=== PATIENT | female | born 1950 | race American Indian/Alaskan Native ===

== ENCOUNTER 2016-06-07 07:28 | Day surgery (SDC) | payer MEDICARE ==
[~2016-06-07 07:28] MED LIST: XYLOCAINE MPF 2% ONE
[2016-06-07] MEDS ORDERED: NACL 0.9% 1000 ML 1,000 ML IV SCH (09:00)
[2016-06-07] MEDS ORDERED: DIPRIVAN 10 MG/ML IV ONE ×2 (09:11)
--- NOTE | 2016-06-07 09:41 | Short Stay Summary ---
Short Stay Documentation Date of service: 06/07/16 Narrative H&P: The patient presents for routine screening colonoscopy. Last study was 10 years ago and was normal - History Past Medical History: No medical history Past Surgical History: No surgical history Social history: no significant social history, , lives with family, no smoking, no alcohol abuse, no prescription drug abuse - Allergies and Medications Current Medications: Allergies shellfish derived Allergy (Verified 06/28/14 09:13) Anaphylaxis tramadol Allergy (Verified 06/07/16 08:16) Nausea codeine Adverse Reaction (Verified 06/28/14 09:13) Nausea Sulfa (Sulfonamide Antibiotics) Adverse Reaction (Verified 06/28/14 09:13) Unknown Home Medications Medication Instructions Recorded Confirmed Last Taken Type No Known Home Medications [No 06/07/16 06/07/16 Unknown History Reported Home Medications] Active Medications Sodium Chloride (Nacl 0.9% 1000 Ml) 1,000 mls @ 50 mls/hr IV DIRECT KAILA Last Admin: 06/07/16 08:44 Dose: 50 mls/hr - Physical exam General appearance: no acute distress, well-nourished, obese Integumentary: no rash, no growths, no abnormal pigmentation HEENT: Atraumatic, PERRLA, EOMI, Mucous membr. moist/pink Lungs: Clear to auscultation, Normal air movement Breasts: deferred Heart: Regular rate, Normal S1, Normal S2, No murmurs Gastrointestinal: normoactive bowel sounds, no tenderness, no distended, no masses, no guarding, no organomegaly, obese Female Genitourinary: deferred Rectal Exam: normal exam-external/orifice, normal rectal tone, no mass Extremities: no ischemia, pulses intact, pulses symmetrical, No edema, normal temperature, normal color, Full ROM Neurological: Normal gait, Normal speech, Strength at 5/5 X4 ext, Normal tone, Sensation intact, Cranial nerves 3-12 NL - Brief post op/procedure progress note Date of procedure: 06/07/16 Findings: see dictation Estimated blood loss: none Pathology: none Condition: stable - Disposition Condition at discharge: Good Disposition: DISCHARGED TO HOME OR SELFCARE - Discharge Diagnoses (1) Colon cancer screening Status: Acute Short Stay Discharge Plan Activity: other (no driving for 24 hours) Weight Bearing Status: Full Weight Bearing Diet: regular Follow up with: ADEOLA PAULSON [Other] - 7 Days
--- NOTE | 2016-06-07 09:42 | Operative Report ---
Operative Report Operative Report: Date of procedure: 06/07/2016 Preprocedure diagnosis: Cancer screening, average risk. Last study was normal 10 years ago. Post procedure diagnosis: Normal study Procedure: Colonoscopy to the cecum Endoscopist: Dr. De León Anesthesia: Monitored anesthesia care per anesthesia department Estimated blood loss: 0 Medications: Monitored anesthesia care. See separate report by anesthesia for details. After careful discussion of the nature and purpose of the procedure as well as details of the technique risks benefits and alternatives the patient gave consent. Please see recent history and physical from the office. The patient was placed in the left lateral decubitus position and medicated per anesthesia. A rectal exam was performed sphincter tone was normal there were no masses palpable. The [employer] 570 scope was passed transanally and advanced under continuous direct vision without difficulty to the cecum. The colon was well prepared. The cecum was normal. The ascending colon was normal and on forward and retroflexed views. The transverse colon, descending colon, and sigmoid colon were normal. The rectum was normal on forward and retroflexed views. The procedure was well-tolerated overall and the patient was observed in recovery. Conclusions: Normal colonoscopy to the cecum. Plan: Repeat colonoscopy in 10 years. Signed electronically: Ha De León M.D.
[2016-06-07 10:01] VITALS: BP 122/62
--- NOTE | 2016-06-07 10:35 | Anesthesia Consultation ---
Anesthesia Consult and Med Hx Date of service: 06/07/16 - Airway Anesthetic Teeth Evaluation: Good ROM Head & Neck: Adequate Mental/Hyoid Distance: Adequate Mallampati Class: Class II Intubation Access Assessment: Probably Good - Pulmonary Exam CTA: Yes - Cardiac Exam Cardiac Exam: RRR - Pre-Operative Health Status ASA Pre-Surgery Classification: ASA2 Proposed Anesthetic Plan: MAC - Pulmonary Hx Smoking: No Hx Sleep Apnea: Yes
--- NOTE | 2016-06-07 10:35 | Anesthesia Day of Surgery ---
Anesthesia Day of Surgery - Day of Surgery Patient Examined: Yes Patient H&P Reviewed: Yes Patient is NPO: Yes
--- NOTE | 2016-06-07 10:36 | Post Anesthesia Evaluation ---
- Post Anesthesia Evaluation Patient Participated: Yes Airway Patent: Yes Stable Respiratory Function: Yes Nausea/Vomiting: No Temp > 96.8F: Yes Pain Manageable: Yes Adequeate Hydration: Yes Anesthesia Complications: No Block Receding Appropriately: Not Applicable Patient on Ventilator: No
== END 2016-06-07 07:29 | disposition home or self-care (01) ==
LOC: GIO 07:28
PROVIDERS: ATTEND Internal Medicine Gastroenterology
DX: Z12.11 Encounter for screening for malignant neoplasm of colon (principal); G47.33 Obstructive sleep apnea (adult) (pediatric); E66.9 Obesity, unspecified; Z68.36 Body mass index [BMI] 36.0-36.9, adult
CPT/HCPCS: G0121; J2704; J7030

== ENCOUNTER 2016-06-21 07:30 | Day surgery (SDC) | payer MEDICARE ==
[2016-06-21] MEDS ORDERED: NACL 0.9% 1000 ML 1,000 ML IV SCH (09:00)
--- NOTE | 2016-06-21 09:13 | Anesthesia Day of Surgery ---
Anesthesia Day of Surgery - Day of Surgery Patient Examined: Yes Patient H&P Reviewed: Yes Patient is NPO: Yes
--- NOTE | 2016-06-21 09:13 | Anesthesia Consultation ---
Anesthesia Consult and Med Hx Date of service: 06/21/16 - Airway Anesthetic Teeth Evaluation: Good ROM Head & Neck: Adequate Mental/Hyoid Distance: Adequate Mallampati Class: Class II Intubation Access Assessment: Probably Good - Pre-Operative Health Status ASA Pre-Surgery Classification: ASA2 Proposed Anesthetic Plan: MAC - Pulmonary Hx Smoking: No Hx Respiratory Symptoms: Yes (some allergies, cough with clear spitum) Hx Sleep Apnea: Yes - Gastrointestinal Hx Ulcer: No (some nausea) - Other Systems Hx Obesity: Yes (BMI 37.2)
[2016-06-21] MEDS ORDERED: DIPRIVAN 10 MG/ML IV ONE (09:18)
[2016-06-21] MEDS ORDERED: XYLOCAINE MPF 2% ONE (09:20)
--- NOTE | 2016-06-21 09:49 | Short Stay Summary ---
Short Stay Documentation Date of service: 06/21/16 Narrative H&P: The patient presents for upper endoscopy to evaluate recurrent nausea and vomiting. - History Past Medical History: arthritis Past Surgical History: No surgical history Social history: no significant social history, no smoking, no alcohol abuse, no prescription drug abuse - Allergies and Medications Current Medications: Allergies shellfish derived Allergy (Verified 06/21/16 08:19) Anaphylaxis tramadol Allergy (Verified 06/21/16 08:19) Nausea codeine Adverse Reaction (Verified 06/21/16 08:19) Nausea Sulfa (Sulfonamide Antibiotics) Adverse Reaction (Verified 06/21/16 08:19) Unknown Home Medications Medication Instructions Recorded Confirmed Last Taken Type No Known Home Medications [No 06/07/16 06/21/16 Unknown History Reported Home Medications] Active Medications Sodium Chloride (Nacl 0.9% 1000 Ml) 1,000 mls @ 50 mls/hr IV DIRECT KAILA Last Admin: 06/21/16 08:43 Dose: 50 mls/hr - Physical exam General appearance: no acute distress, well-nourished Integumentary: no rash, no growths, no abnormal pigmentation HEENT: Atraumatic, PERRLA, EOMI, Mucous membr. moist/pink Lungs: Clear to auscultation, Normal air movement Breasts: deferred Heart: Regular rate, Normal S1, Normal S2, No murmurs, no Gallops Gastrointestinal: normoactive bowel sounds, no tenderness, no distended, no masses, no guarding, no organomegaly Female Genitourinary: deferred Rectal Exam: deferred Extremities: no ischemia, pulses intact, pulses symmetrical, No edema, normal temperature, normal color, Full ROM Neurological: Normal gait, Normal speech, Strength at 5/5 X4 ext, Normal tone, Sensation intact, Cranial nerves 3-12 NL - Brief post op/procedure progress note Date of procedure: 06/21/16 Findings: see dictated report Estimated blood loss: none Pathology: list (antral biopsies for h.pylori) Specimen disposition: to lab Condition: stable - Disposition Condition at discharge: Good Disposition: DISCHARGED TO HOME OR SELFCARE - Discharge Diagnoses (1) Nausea and vomiting Status: Acute Qualifiers: Vomiting type: V Vomiting Intractability: V Short Stay Discharge Plan Activity: other (no driving for 24 hours) Weight Bearing Status: Full Weight Bearing Diet: regular
--- NOTE | 2016-06-21 09:55 | Operative Report ---
Operative Report Operative Report: Date of procedure: 06/21/2016 Procedure: Esophagogastroduodenoscopy with biopsies for H. pylori of the stomach antrum Preprocedure diagnosis: Recurrence of nausea and vomiting. Post procedure diagnosis: Minimal gastritis. Fixed open pylorus. Otherwise normal study. Endoscopist: Dr. De León Anesthesia: Monitored anesthesia care per anesthesia department Medications: Propofol per anesthesia. Estimated blood loss: A 0 After careful discussion of the nature and purpose of the procedure as well as details the technique risks benefits and alternatives consent was obtained. The patient was placed in the left lateral decubitus position and medicated per anesthesia. The tip of the [employer] 570 video scope was passed per orum under direct vision into the esophagus and advanced into the stomach and descending duodenum. The descending duodenum the duodenal bulb and pylorus were symmetrical and normal. The pylorus was fixed open and patent. The scope was withdrawn into the stomach and the stomach then gently insufflated with air. The antrum revealed a few punctate erosions. Biopsies are taken for H. pylori in the prepyloric antrum. The stomach was further insufflated and the scope was then retroflexed and partially withdrawn. The cardia, fundus, and body of the stomach were within normal limits and easily distensible.The scope was then withdrawn in the forward position. The esophagogastric junction was at [39 cm]. The esophageal body was normal throughout. The procedure was was well tolerated and the patient was observed in recovery. Impressions: Mild antral gastritis. Fixed open pylorus. Otherwise normal study. Plan: Await biopsies for H. pylori. Electronically signed: Ha De León MD
[2016-06-21 10:25] VITALS: BP 147/89
== END 2016-06-21 07:31 | disposition home or self-care (01) ==
LOC: GIO 07:30
PROVIDERS: ATTEND Internal Medicine Gastroenterology
DX: K29.50 Unspecified chronic gastritis without bleeding (principal); M19.90 Unspecified osteoarthritis, unspecified site; E66.9 Obesity, unspecified; Z68.37 Body mass index [BMI] 37.0-37.9, adult
CPT/HCPCS: 43239; 88305; 88342; J2704; J7030

== ENCOUNTER 2020-12-07 09:56 | Day surgery (SDC) | payer MEDICARE ==
[~2020-12-07 09:56] MED LIST changes: +SODIUM CHLORIDE 0.9% 1000 ML 1,000 ML IV SCH; -XYLOCAINE MPF 2% ONE
[2020-12-07] MEDS ORDERED: LIDOCAINE MPF (2%) 20 MG/1 ML VIAL 5 ML ONE (10:30)
[2020-12-07] MEDS ORDERED: propofoL 200 MG/20 ML VIAL IV ONE ×2 (10:34→10:35)
--- NOTE | 2020-12-07 12:14 | Short Stay Summary ---
Short Stay Documentation Date of service: 12/07/20 Narrative H&P: The presents for diagnostic colonoscopy for persistent LLQ abdominal pain. - History Past Medical History: No medical history Past Surgical History: No surgical history Social history: no significant social history, , lives with family - Allergies and Medications Current Medications: Allergies shellfish derived Allergy (Verified 06/21/16 08:19) Anaphylaxis tramadol Allergy (Verified 06/21/16 08:19) Nausea codeine Adverse Reaction (Verified 06/21/16 08:19) Nausea Sulfa (Sulfonamide Antibiotics) Adverse Reaction (Verified 06/21/16 08:19) Unknown Home Medications Medication Instructions Recorded Confirmed Last Taken Type Multivitamin Tab [Multiple Vitamin 1 each PO QDAY 12/06/20 12/06/20 Unknown History TAB (Theragran)] Active Medications Sodium Chloride (Nacl 0.9% 1000 Ml) 1,000 mls @ 50 mls/hr IV DIRECT KAILA - Physical exam General appearance: no acute distress, well-nourished Integumentary: no rash, no growths, no abnormal pigmentation HEENT: Atraumatic, PERRLA, EOMI, Mucous membr. moist/pink Lungs: Clear to auscultation, Normal air movement Breasts: deferred Heart: Regular rate, Normal S1, Normal S2, No murmurs Gastrointestinal: normoactive bowel sounds, no tenderness, no distended, no masses, no organomegaly, no obese Female Genitourinary: deferred Rectal Exam: normal exam-external/orifice, no tenderness, no hemorrhoids, no mass Extremities: no ischemia, pulses intact, pulses symmetrical, No edema, normal temperature, normal color, Full ROM Neurological: Normal gait, Normal speech, Strength at 5/5 X4 ext, Normal tone, Sensation intact, Cranial nerves 3-12 NL - Brief post op/procedure progress note Date of procedure: 12/07/20 Findings: see dictation Estimated blood loss: none Pathology: none Condition: stable - Disposition Condition at discharge: Good Disposition: DC-01 TO HOME OR SELFCARE - Discharge Diagnoses (1) LLQ abdominal pain Status: Acute Short Stay Discharge Plan Activity: other (No driving for 24 hours) Weight Bearing Status: Weight Bear as Tolerated Diet: regular Follow up with: PRIMARY CARE,MD [Primary Care Provider] - 7 Days
--- NOTE | 2020-12-07 12:15 | Operative Report ---
Operative Report Operative Report: Date of procedure: 12/07/2020 Preprocedure diagnosis: Persistent left lower quadrant pain, diagnostic colonos copy. Post procedure diagnosis: Normal study Procedure: Colonoscopy to the cecum Endoscopist: Dr. De León Anesthesia: Monitored anesthesia care per anesthesia department Estimated blood loss: 0 Medications: Monitored anesthesia care. See separate report by anesthesia for details. After careful discussion of the nature and purpose of the procedure as well as details of the technique risks benefits and alternatives the patient gave consent. Please see recent history and physical from the office. The patient was placed in the left lateral decubitus position and medicated per anesthesia. A rectal exam was performed sphincter tone was normal there were no masses palpable. The [employer] 570 scope was passed transanally and advanced under continuous direct vision without difficulty to the cecum. The colon was well prepared. The cecum was normal. The ascending colon was normal and on forward and retroflexed views. The transverse colon, descending colon, and sigmoid colon we re normal. The rectum was normal on forward and retroflexed views. The procedure was well-tolerated overall and the patient was observed in recovery. Conclusions: Normal colonoscopy to the cecum. Plan: Repeat colonoscopy as needed in light of patient's age. Signed electronically: Ha De León M.D.
[2020-12-07 12:33] VITALS: BP 135/62
--- NOTE | 2020-12-07 13:41 | Anesthesia Consultation ---
Anesthesia Consult and Med Hx Date of service: 12/07/20 - Airway Anesthetic Teeth Evaluation: Good ROM Head & Neck: Adequate Mental/Hyoid Distance: Adequate Mallampati Class: Class I Intubation Access Assessment: Probably Good - Pulmonary Exam CTA: Yes - Cardiac Exam Cardiac Exam: RRR - Pre-Operative Health Status ASA Pre-Surgery Classification: ASA1 Proposed Anesthetic Plan: MAC - Pulmonary Hx Smoking: No Hx Respiratory Symptoms: Yes (some allergies, cough with clear spitum) Hx Sleep Apnea: No - Cardiovascular System Hx Hypertension: No Hx Cardia Arrhythmia: No - Central Nervous System Hx Neuromuscular Disorder: No - Gastrointestinal Hx Ulcer: No (some nausea) Hx Gastroesophageal Reflux Disease: No - Endocrine Hx Renal Disease: No Hx Liver Disease: No - Hematic Hx Anemia: No - Other Systems Hx Alcohol Use: No Hx Obesity: Yes (BMI 37.2) - Additional Comments Anesthesia Medical History Comments: No h/o GAC, no FHAC.
--- NOTE | 2020-12-07 13:41 | Anesthesia Day of Surgery ---
Anesthesia Day of Surgery - Day of Surgery Patient Examined: Yes Patient H&P Reviewed: Yes Patient is NPO: Yes Beta Blockers: No Cardiac Clearance: No Pulmonary Clearance: No Frantz's Test: N/A
== END 2020-12-07 12:50 | disposition home or self-care (01) ==
LOC: GIO 09:56
PROVIDERS: ATTEND Internal Medicine Gastroenterology
DX: R10.32 Left lower quadrant pain (principal); K63.89 Other specified diseases of intestine; E66.9 Obesity, unspecified; Z88.2 Allergy status to sulfonamides; Z91.013 Allergy to seafood; Z88.8 Allergy status to other drugs, medicaments and biological substances; Z88.5 Allergy status to narcotic agent; Z79.899 Other long term (current) drug therapy; Z98.890 Other specified postprocedural states; Z68.38 Body mass index [BMI] 38.0-38.9, adult
CPT/HCPCS: 45378; J2704; J7030